=== PATIENT | female | born 1935 | race Caucasian/White ===

== ENCOUNTER 2017-09-15 14:44 | Inpatient (IN) | payer OTHER ==
[~2017-09-15] VITALS: Ht 170.2 cm; Wt 91.2 kg
[~2017-09-15 14:44] MED LIST: ALEVE220 MG PO; ATORVASTATIN CA40 MG PO; COLACE100 MG PO; OXAYDO5 MG PO; SYNTHROID100 MCG PO; ZESTORETIC 20-1 EAC1 PO
[2017-09-15 15:32] LABS: HEMATOCRIT 32.4 % (36.0-46.0); HEMOGLOBIN 10.9 G/DL (11.9-15.5); MCH 31.7 PG (29.0-34.0); MCHC 33.6 G/DL (30.0-36.0); MCV 94.2 FL (83-99); PLATELET COUNT 388 K/uL (156-360); RBC DIS.WIDTH-CV 13.6 % (11.8-14.6); RBC DIS.WIDTH-SD 46.5 % (39-53); RED BLOOD COUNT 3.44 M/uL (3.80-5.20); WHITE BLOOD COUNT 22.6 K/uL (4.1-10.2)
[2017-09-15 15:44] LABS: ALBUMIN 3.4 g/dL (3.2-4.8)
[2017-09-15 15:45] LABS: CHLORIDE 100 mEq/L (99-109); POTASSIUM 4.1 mEq/L (3.7-5.4); SODIUM 138 mEq/L (136-147)
[2017-09-15 15:47] LABS: GLUCOSE 215 mg/dL (70-99); TOTAL PROTEIN 7.1 g/dL (6.4-8.3)
[2017-09-15 15:49] LABS: TOTAL BILIRUBIN 0.6 mg/dL (0.0-1.0)
[2017-09-15 15:50] LABS: ALKALINE PHOSPHATASE 117 IU/L (3-129)
[2017-09-15 15:51] LABS: CREATININE 1.3 mg/dL (0.6-1.3); GFR ESTIMATE (CALCULATED) 42 mL/min/
[2017-09-15 15:52] LABS: AST (GOT) 67 IU/L (2-34); UREA NITROGEN (BUN) 36 mg/dL (9-23)
[2017-09-15 15:54] LABS: ALT (GPT) 53 IU/L (3-49)
[2017-09-15 15:57] LABS: TROP-I INTERPRETATION POSITIVE
[2017-09-15 15:59] LABS: TROPONIN-I 1.47 ng/mL (0.0-0.30)
[2017-09-15] MEDS ORDERED: ANASTROZOLE1 MG PO (16:31)
[2017-09-15] MEDS ORDERED: CEFDINIR300 MG PO (16:32)
[2017-09-15] MEDS ORDERED: PROMETHAZI6.25 MG/5 PO (16:34)
[2017-09-15 17:28] LABS: THYROTROPIN (TSH) 3.8 MIU/L (0.4-5.5)
[2017-09-15 20:00] VITALS: BP 121/59
[2017-09-15 22:42] LABS: TROP-I INTERPRETATION POSITIVE
[2017-09-15 23:36] VITALS: BP 83/46
[2017-09-16 03:21] VITALS: BP 96/53
[2017-09-16 05:38] LABS: HEMATOCRIT 31.1 % (36.0-46.0); MCHC 32.2 G/DL (30.0-36.0); MCV 96.3 FL (83-99); PLATELET COUNT 392 K/uL (156-360); RBC DIS.WIDTH-CV 13.4 % (11.8-14.6); RBC DIS.WIDTH-SD 47.4 % (39-53); RED BLOOD COUNT 3.23 M/uL (3.80-5.20); WHITE BLOOD COUNT 19.8 K/uL (4.1-10.2)
[2017-09-16 06:02] LABS: TROP-I INTERPRETATION POSITIVE; TROPONIN-I 1.51 ng/mL (0.0-0.30)
[2017-09-16 06:24] LABS: CHLORIDE 103 MEQ/L (99-109); CREATININE 1.1 MG/DL (0.6-1.3); GFR ESTIMATE (CALCULATED) 50 mL/min/; HDL CHOLESTEROL 26 MG/DL (Desirable>=50); LDL CHOLESTEROL 70 mg/dL (Desirable<100); NON-HDL CHOLESTEROL 95 mg/dL (Desirable<160); POTASSIUM 4.6 MEQ/L (3.7-5.4); SODIUM 143 MEQ/L (136-147); TOTAL CHOLESTEROL 121 mg/dL (Desirable<200); TRIGLYCERIDES 126 MG/DL (Normal: <150); UREA NITROGEN (BUN) 30 mg/dL (9-23)
[2017-09-16 06:25] LABS: GLUCOSE 111 mg/dL (70-99)
[2017-09-16 07:17] VITALS: BP 137/54
[2017-09-16 10:09] LABS: HEMOGLOBIN A1c (GLYCOHEMOGLOB) 6.9 % (Below 5.7)
[2017-09-16 11:48] VITALS: BP 137/65
[2017-09-16 15:25] VITALS: BP 144/64
[2017-09-16 19:00] VITALS: BP 154/71
[2017-09-16 22:30] VITALS: BP 122/56
[2017-09-17 03:30] VITALS: BP 132/60
[2017-09-17 07:50] VITALS: BP 133/63
[2017-09-17 11:36] VITALS: BP 133/78
[2017-09-17] MEDS ORDERED: ATORVASTATIN CA80 MG PO (12:21)
[2017-09-17] MEDS ORDERED: ELIQUIS5 MG PO (12:21)
[2017-09-17] MEDS ORDERED: LISINOPRIL10 MG PO (12:22)
[2017-09-17] MEDS ORDERED: METOPROLOL SUCC25 MG PO (12:22)
[2017-09-17] MEDS ORDERED: ASPIR-LOW81 MG PO (12:23)
== END 2017-09-17 14:24 | disposition home or self-care (01) | DRG 281 ==
LOC: EME 14:44 → 4EAST 16:44 → EDOF 16:44 → ENRESERV 16:48 → 4EAST 19:44
PROVIDERS: Emergency Medicine Emergency Medical Services; Family Medicine
DX: I21.4 Non-ST elevation (NSTEMI) myocardial infarction (principal); I48.91 Unspecified atrial fibrillation; I48.92 Unspecified atrial flutter; I95.9 Hypotension, unspecified; E11.9 Type 2 diabetes mellitus without complications; J02.8 Acute pharyngitis due to other specified organisms; D72.829 Elevated white blood cell count, unspecified; I10 Essential (primary) hypertension; E78.5 Hyperlipidemia, unspecified; E03.9 Hypothyroidism, unspecified; R53.1 Weakness; Z66 Do not resuscitate; I67.82 Cerebral ischemia; I49.3 Ventricular premature depolarization; K59.00 Constipation, unspecified; Z60.2 Problems related to living alone; Z91.81 History of falling; Z87.891 Personal history of nicotine dependence; Z85.3 Personal history of malignant neoplasm of breast; Z90.11 Acquired absence of right breast and nipple; Z90.710 Acquired absence of both cervix and uterus; Z90.49 Acquired absence of other specified parts of digestive tract
CPT/HCPCS: 70450; 70496; 70551; 71045; 71275; 80048; 80053; 80061; 81003; 83036; 84443; 84484; 85027; 93005; 93306; 93880; 99281; 99285; J1650; J7040